=== PATIENT | female | born 1955 | race Caucasian/White ===

== ENCOUNTER → 2016-10-01 | Outpatient (CLI) | payer MEDICARE, OTHER | LOC: RAD 12:15 | DX: R05 Cough (principal) | CPT/HCPCS: 71020 ==

== ENCOUNTER → 2016-10-25 | Outpatient (CLI) | payer MEDICARE, OTHER | LOC: HEART 5 08:29 | DX: J45.991 Cough variant asthma (principal); R94.2 Abnormal results of pulmonary function studies | CPT/HCPCS: 94060; 94729 ==

== ENCOUNTER → 2017-03-11 | Outpatient (CLI) | payer MEDICARE, OTHER | LOC: RAD 11:18 | DX: R05 Cough (principal) | CPT/HCPCS: 71020 ==